=== PATIENT | female | born 1990 | race Caucasian/White ===

== ENCOUNTER 2022-02-15 17:45 | Emergency (ER) | payer MEDICAID ==
[2022-02-15] MEDS ORDERED: Sodium Chloride 0.9% 10 ML Syringe FLUSH PRN (17:48)
[2022-02-15] MEDS ORDERED: Ketorolac 30 MG/ML SDV IVPUSH ONE (17:49)
[2022-02-15] MEDS ORDERED: diphenhydrAMINE 50 MG/ML SDV IVPUSH ONE (17:49)
[2022-02-15] MEDS ORDERED: Prochlorperazine 10 MG/2 ML SDV IVPUSH ONE (17:49)
== END 2022-02-15 19:28 | disposition home or self-care (01) ==
LOC: FB.ED 17:45
DX: G43.909 Migraine, unspecified, not intractable, without status migrainosus (principal); I10 Essential (primary) hypertension; Z88.0 Allergy status to penicillin
CPT/HCPCS: 70450; 96374; 96375; 99282; 99285-25; J0780; J1200; J1885; J3490